=== PATIENT | female | born 1970 | race Caucasian/White ===

== ENCOUNTER 2020-08-25 20:55 | Observation (INO) ==
[2020-08-25] MEDS ORDERED: Isovue-370 500 ML BOTTLE IVP ONE (21:13)
[2020-08-25 21:34] LABS: Hematocrit 47.3 % (35.3-44.9); Hemoglobin 15.3 g/dL (11.5-15.4); Mean Corpuscular HGB Conc 32.3 g/dL (31.6-35.5); Mean Corpuscular Hemoglobin 26.2 pg (28.0-33.3); Mean Corpuscular Volume 81.1 fL (83.0-100.0); Mean Platelet Volume 9.5 fL (9.4-12.4); Platelet Count 353 K/mcL (140-400); Red Blood Count 5.83 M/mcL (3.82-4.97); Red Cell Distribution Width 18.6 % (11.5-14.5); White Blood Count 13.4 K/mcL (4.3-11.1)
[2020-08-25 21:42] LABS: INR 1.2; Prothrombin Time 14.2 Seconds (9.4-12.1)
[2020-08-25 21:45] LABS: Activated Partial Thrombo Time 28.5 Seconds (26.0-36.0)
[2020-08-25 21:52] LABS: BUN/Creatinine Ratio 18 (6-26); Blood Urea Nitrogen 24 mg/dL (6-20); Calcium 9.4 mg/dL (8.6-10.3); Carbon Dioxide 22 mEq/L (23-29); Chloride 94 mEq/L (98-107); Glucose 136 mg/dL (70-105); Osmolality,Calculated 276 (280-300); Potassium 4.7 mEq/L (3.5-5.1); Sodium 130 mEq/L (136-145); Troponin I < 0.03 ng/mL (< 0.04); eGFR For African Americans 52 (> 60); eGFR For Non-African Americans 43 (> 60)
[2020-08-25] MEDS ORDERED: 0.9 % Sodium Chloride 1,000 ML IVC ONE (21:59)
[2020-08-25] MEDS ORDERED: niCARdipine 20 MG/200 ML MLS IVC SCH (22:00)
[2020-08-25] MEDS ORDERED: Aspirin 81 MG TAB.CHEW PO ONE (22:45)
[2020-08-26] MEDS ORDERED: Naloxone 0.4 MG/ML INJ IVP PRN (00:04)
[2020-08-26] MEDS ORDERED: Ondansetron 4 MG/2 ML VIAL IVP PRN (00:04)
[2020-08-26] MEDS ORDERED: LASIX 20 MG PO PRN (03:10)
[2020-08-26] MEDS ORDERED: Perflutren Lipid Microsphere 1.3 ML in 0.9 % Sodium Chloride 8.7 ML IVP PRN (03:22)
[2020-08-26] MEDS ORDERED: amLODIPine 5 MG TABLET PO SCH (03:45)
[2020-08-26] MEDS: cloNIDine HCL 0.1 MG TABLET PO SCH ×2 (03:48→10:25)
[2020-08-26] MEDS: hydrALAZINE 25 MG TABLET PO SCH ×3 (03:48→20:09)
[2020-08-26 06:29] LABS: Basophils # 0.1 K/mcL (0.0-0.2); Basophils % 0.5 %; Eosinophils # 0.1 K/mcL (0.0-0.6); Eosinophils % 0.6 %; Hemoglobin 14.7 g/dL (11.5-15.4); Immature Granulocytes % 0.4 % (0-4); Lymphocytes # 3.3 K/mcL (0.6-4.6); Lymphocytes % 23.1 %; Mean Corpuscular Hemoglobin 26.4 pg (28.0-33.3); Mean Corpuscular Volume 82.7 fL (83.0-100.0); Mean Platelet Volume 9.5 fL (9.4-12.4); Monocytes # 0.9 K/mcL (0.0-1.3); Monocytes % 6.3 %; Neutrophils # 9.7 K/mcL (1.6-8.9); Platelet Count 322 K/mcL (140-400); Red Blood Count 5.56 M/mcL (3.82-4.97); Red Cell Distribution Width 18.6 % (11.5-14.5); Segmented Neutrophils % 69.1 %; White Blood Count 14.1 K/mcL (4.3-11.1)
[2020-08-26 06:36] LABS: INR 1.3; Prothrombin Time 14.8 Seconds (9.4-12.1)
[2020-08-26 06:51] LABS: Troponin I < 0.03 ng/mL (< 0.04)
[2020-08-26 07:04] LABS: Alanine Aminotransferase 10 Units/L (7-52); Albumin 4.4 g/dL (3.5-5.7); Albumin/Globulin Ratio 1.5 (1.1-2.2); Alkaline Phosphatase 49 Units/L (34-104); Aspartate Amino Transferase 14 Units/L (13-39); BUN/Creatinine Ratio 22 (6-26); Bilirubin,Total 0.6 mg/dL (0.3-1.0); Blood Urea Nitrogen 23 mg/dL (6-20); Calcium 9.4 mg/dL (8.6-10.3); Carbon Dioxide 21 mEq/L (23-29); Chloride 98 mEq/L (98-107); Chol/HDL Ratio 6.1 (0-4.9); Cholesterol 219 mg/dL (< 200); Globulin 2.9 g/dL (2.4-3.5); Glucose 156 mg/dL (70-105); HDL Cholesterol 36 mg/dL (40-59); LDL Cholesterol,Calculated 122 mg/dL (< 100); Magnesium 1.4 mg/dL (1.6-2.6); Osmolality,Calculated 281 (280-300); Phosphorous 3.5 mg/dL (2.7-4.5); Potassium 3.5 mEq/L (3.5-5.1); Sodium 132 mEq/L (136-145); Thyroid Stimulating Hormone 5.827 mcIU/mL (0.340-5.600); Total Protein 7.3 g/dL (6.4-8.9); Triglycerides 305 mg/dL (< 150); eGFR For African Americans > 60 (> 60); eGFR For Non-African Americans 56 (> 60)
[2020-08-26] MEDS ORDERED: Aspirin 81 MG TAB.CHEW PO SCH (09:00)
[2020-08-26 09:38] LABS: Triiodothyronine (T3) Free 3.06 pg/mL (2.50-3.90)
[2020-08-26] MEDS ORDERED: amLODIPine 5 MG TABLET PO ONE (10:16)
[2020-08-26] MEDS: Acetaminophen 325 MG TABLET PO PRN ×2 (10:26→20:08)
[2020-08-26 10:44] LABS: Estimated Average Glucose 146 mg/dl; Hemoglobin A1C 6.7 %
[2020-08-26] MEDS ORDERED: ALPRAZolam 0.25 MG TABLET PO ONE ×2 (11:42→20:12)
[2020-08-26] MEDS ORDERED: *HR* OxyCODONE/APAP 10/325 TABLET PO PRN (15:28)
[2020-08-26] MEDS ORDERED: Gabapentin 300 MG CAPSULE PO SCH (21:00)
[2020-08-27 00:41] VITALS: BP 146/93
[2020-08-27 03:07] LABS: Calcium 9.2 mg/dL (8.6-10.3); Potassium 3.6 mEq/L (3.5-5.1)
[2020-08-27] MEDS ORDERED: hydroCHLOROthiazide 25 MG TABLET PO SCH (09:00)
[2020-08-27] MEDS ORDERED: amLODIPine 5 MG TABLET PO SCH (09:00)
== END 2020-08-27 04:50 | disposition short-term general hospital (02) ==
LOC: 2ANU 20:55 → EMEROOARM 20:55 → SUATTDRO 23:51 → 2ANU 08-26 00:21
PROVIDERS: ADMIT Student in an Organized Health Care Education/Training Program; ATTEND Family Medicine